=== PATIENT | male | born 1980 | race Caucasian/White ===

== ENCOUNTER 2017-10-11 07:28 | Day surgery (SDC) | payer OTHER ==
--- NOTE | 2017-10-09 13:03 | HISTORY AND PHYSICAL E ---
History and Physical NAME: KIMBERLY KRISHNAN : 1980 AGE: 37Y ADMITTED: 10/11/2017 ROOM: HISTORY OF PRESENT ILLNESS: The patient presents with abdominal pain, 37. He has reflux, vomiting, abdominal pain, bloating. SOCIAL HISTORY: Does not smoke. Drinks rarely. FAMILY HISTORY: Patient adopted. PAST SURGICAL HISTORY: Vasectomy. Hydrocele. Did have upper endoscopy, 2014, regarding GERD and vomiting. MEDICATIONS: 1. Celebrex. 2. Zantac. 3. Protonix. 4. Vitamins. REVIEW OF SYSTEMS: HEAD, EYES, EARS, NOSE, THROAT: Negative. RESPIRATORY: Negative. CARDIAC: Negative. GASTROINTESTINAL: Reflux, abdominal pain. ONCOLOGY/HEMATOLOGY: Negative. NEUROLOGIC: L5-S1. PHYSICAL EXAMINATION: VITAL SIGNS: Age 37, weight 200, blood pressure 130/70, pulse is 60, respirations 18, temp is 98. HEAD, EYES, EARS, NOSE, THROAT: Normal. NECK: Supple. CARDIOVASCULAR: Normal. LUNGS: Clear. ABDOMEN: Soft. NEUROLOGIC: Negative. PLAN: Upper scope, 10/11. DICTATING PHYSICIAN: VIDA BELTRAN M.D. [id number] PHY#: [id number] ID: [id number] JOB#: [id number] ACCT: [id number] cc:[facility] VIDA KAN M.D. >
[2017-10-11] MEDS ORDERED: NALOXONE HCL INJ/PF 0.4 MG/1 ML SDV ONE (07:38)
[2017-10-11] MEDS ORDERED: GLYCOPYRROLATE INJ 0.4 MG/2 ML VIAL ONE (07:38)
[2017-10-11] MEDS ORDERED: ONDANSETRON HCL INJ/PF 4 MG/2 ML SDV ONE (07:38)
[2017-10-11] MEDS ORDERED: FLUMAZENIL INJ 0.5 MG/5 ML VIAL ONE (07:39)
[2017-10-11] MEDS ORDERED: EPINEPHRINE INJ 1 MG/10 ML DISP.SYRIN ONE (07:39)
[2017-10-11] MEDS: MIDAZOLAM 2 MG/2 ML INJ ONE ×4 (08:04→08:12)
[2017-10-11] MEDS: FENTANYL CITRATE INJ/PF 100 MCG/2 ML AMPUL ONE ×2 (08:06→08:14)
[2017-10-11 09:33] VITALS: BP 108/65
[2017-10-11 09:38] LABS: ABSOLUTE BASOPHILS # (AUTO) 0.1 10^3/uL (0.0-0.2); ABSOLUTE EOSINOPHILS # (AUTO) 0.3 10^3/uL (0.0-0.6); ABSOLUTE LYMPHOCYTES (AUTO) 1.8 10^3/uL (0.5-4.7); ABSOLUTE MONOCYTES (AUTO) 0.3 10^3/uL (0.1-1.4); ABSOLUTE NEUT (AUTO) 2.7 10^3/uL (1.7-8.2); BASOPHILS % (AUTO) 2.4 % (0-2); EOSINOPHILS % (AUTO) 5.4 % (0-6); HEMATOCRIT 43.4 % (37.9-51.0); HEMOGLOBIN 15.1 g/dL (13.5-17.0); HGB HCT DIFFERENCE 1.9; LYMPHOCYTES % (AUTO) 35.4 % (13-45); MEAN CORPUSCULAR HEMOGLOBIN 31.3 pg (27.0-33.4); MEAN CORPUSCULAR HGB CONC 34.8 g/dL (32.0-36.0); MEAN CORPUSCULAR VOLUME 90 fl (80-97); MONOCYTES % (AUTO) 5.9 % (3-13); RED BLOOD COUNT 4.83 10^6/uL (4.35-5.55); RED CELL DISTRIBUTION WIDTH 13.2 % (11.5-14.0); SEGMENTED NEUTROPHILS % (AUTO) 50.9 % (42-78); WHITE BLOOD COUNT 5.2 10^3/uL (4.0-10.5)
[2017-10-11 09:54] LABS: ALANINE AMINOTRANSFERASE 53 U/L (21-72); ALBUMIN 4.6 g/dL (3.5-5.0); ALKALINE PHOSPHATASE 55 U/L (38-126); ANION GAP 12 (5-19); ASPARTATE AMINO TRANSFERASE 25 U/L (17-59); BILIRUBIN,DIRECT 0.2 mg/dL (0.0-0.4); BILIRUBIN,TOTAL 0.5 mg/dL (0.2-1.3); BLOOD UREA NITROGEN 14 mg/dL (7-20); CALCIUM 9.9 mg/dL (8.4-10.2); CARBON DIOXIDE 26 mmol/L (22-30); CHLORIDE 103 mmol/L (98-107); CREATININE RESULT 0.88 mg/dL (0.52-1.25); GLUCOSE 140 mg/dL (75-110); LIPASE 69.1 U/L (23-300); POTASSIUM 4.2 mmol/L (3.6-5.0); SODIUM 140.8 mmol/L (137-145); TOTAL PROTEIN 6.8 g/dL (6.3-8.2)
[2017-10-11 09:57] LABS: AMYLASE < 30 U/L (30-110)
--- NOTE | 2017-10-11 13:05 | OPERATIVE REPORT E ---
Operative Report NAME: KIMBERLY KRISHNAN : 1980 AGE: 37Y DATE OF SURGERY: 10/11/2017 ROOM: PREOPERATIVE DIAGNOSES: 1. Reflux. 2. Abdominal pain. POSTOPERATIVE DIAGNOSES: 1. Esophagitis, mild. 2. Gastritis, mild. 3. Duodenitis, mild. SURGEON: VIDA BELTRAN M.D. ANESTHESIA: Versed, fentanyl combination. Patient has strong gag. Given Versed 6 and fentanyl 150. For future endoscopy, consider propofol with anesthesia standby. DESCRIPTION OF PROCEDURE: Esophagoscopy junction at 40. Mild esophagitis. No stricture. No definite hernia. Mild esophagitis. Gastroscopy: Mild gastritis. Duodenoscopy: No ulcers with mild duodenitis. CONCLUSION: 1. Esophagitis. 2. Gastritis. 3. Duodenitis with no ulcers. Gastric biopsy obtained. Patient tolerated procedure well. PLAN: Continue Protonix. Hold aspirin, nonsteroidal. Soft diet. Patient to see us in the office in the next few days. DICTATING PHYSICIAN: VIDA BELTRAN M.D. [id number] [facility]#: [id number] ID: [id number] JOB#: [id number] ACCT: [id number] cc:[facility] VIDA BELTRAN M.D. >
--- NOTE | 2017-10-11 13:16 | DISCHARGE SUMMARY E ---
Discharge Summary NAME: KIMBERLY KRISHNAN : 1980 AGE: 37Y ADMITTED: 10/11/2017 DISCHARGED: 10/11/2017 The patient is 37, with exacerbation of . Scope today shows mild esophagitis, no hernia, mild gastritis. DISCHARGE PLAN: Continue Protonix, soft diet. Lab studies. Followup office visit in the next few days. DICTATING PHYSICIAN: VIDA BELTRAN M.D. [id number] Y#: [id number] ID: [id number] JOB#: [id number] ACCT: [id number] cc:[facility] VIDA BELTRAN M.D. >
== END 2017-10-11 09:34 | disposition home or self-care (01) ==
LOC: END 07:28
PROVIDERS: ATTEND Specialist
PROC: 0DB68ZX Excision of Stomach, Via Natural or Artificial Opening Endoscopic, Diagnostic (ICD-10-PCS; principal; 2017-10-11 08:00)
DX: K21.0 Gastro-esophageal reflux disease with esophagitis (principal); K29.50 Unspecified chronic gastritis without bleeding; K29.80 Duodenitis without bleeding; Z79.899 Other long term (current) drug therapy; Z79.1 Long term (current) use of non-steroidal anti-inflammatories (NSAID)
CPT/HCPCS: 43239; 36415; 82150; 83690; 85025; 80053; 88342 ×2; 88305 ×2; J2250; J3010; J2405; J0171; J2310; J3490

== ENCOUNTER → 2019-03-11 | Day surgery (SDC) | payer OTHER ==
[~2019-03-11] MED LIST: BUPIVACAINE HCL 0.5 % INJ/PF 30 ML SDV ONE; LIDOCAINE 1% INJ-PF (10 MG/ML) 30 ML SDV ONE; LIDOCAINE 2% INJ (20 MG/ML) 20 ML MDV ONE; METHYLPREDNISOLONE ACETATE INJ 40 MG/1 ML ML ONE
--- NOTE | 2019-03-11 10:28 | Operative Report ---
PREOPERATIVE DIAGNOSIS: Lumbar Spondylosis without myelopathy POSTOPERATIVE DIAGNOSIS: Lumbar Spondylosis without myelopathy PROCEDURE: Radiofrequency Ablation of medial branches - RT L3, L4 . LT L3, L4. DATE OF PROCEDURE: March 11, 2019 ANESTHESIA: Local COMPLICATIONS: None CONSENT: A full description of the procedure was provided including benefits as well as possible complications. All questions were answered and informed consent was given and signed. ASA guidelines for fasting were verified prior to sedation. PROCEDURE IN DETAIL The patient was brought into the fluoroscopy suite and positioned into the prone position on the fluoroscopy table and allowed to adjust to a position of comfort. A grounding pad was placed on the right thigh. The lumbar region was widely prepped with a chloraprep solution, allowed to air dry and draped in standard sterile surgical fashion. Local anesthesia was provided by 1 mL of 1 % lidocaine delivered with a 25 g needle. A 17g 75 mm radiofrequency introducer needle was placed to the planned anatomic targets guided with intermittent fluoroscopy with a perpendicular approach to terminally place at the junction of the superior articular process and the transverse process of the right L3 and L4. The stylets were removed and radiofrequency probes with a 4mm active tip were then inserted. Needle tip position of the probes was verified in the AP, oblique, and lateral views. At each site, the medial branch nerve was stimulated at 2 Hz to a maximum 1-2 volts determined to finalize safe needle and electrode placement. The patient was aw shelby and responsive during this portion of the procedure. Each target was anesthetized with 1-2 mL of 2 % lidocaine for anesthesia for lesioning and then each target was lesioned at 80 degrees Celsius for 2 minutes and 30 seconds. Tissue impedences were noted to be between 250 and 500 Ohms. Electrodes were removed and each site was infiltrated with 1mL of a mixture of 0.25% bupivacaine and 40mg depomedrol. Then needles were removed. Attention was turned to the opposite side where the procedure was performed in identical fashion. Following the procedure, needles were removed and bandages placed over the needle placement sites, the patient then returned to the supine position on a stretcher and transported to the recovery room without hemodynamic, neurologic, or allergic reactions. Fluoroscopic images were printed for hard copy recording and digitally archived. POST PROCEDURE EVALUATION: The patient was comfortable in the recovery room. The patient is aware that pain may worsen before remitting and 4 - 6 weeks may be required prior to the onset of pain relief. IMPRESSION: 1. Technically successful bilateral L3 L4 medial branch radiofrequency neurotomy without complication. 2. RTC in 3 weeks. 3. Estimated Blood Loss: Minimal
== END ==
LOC: RAD 08:59
PROVIDERS: ATTEND Pain Medicine Interventional Pain Medicine
DX: M47.816 Spondylosis without myelopathy or radiculopathy, lumbar region (principal)
CPT/HCPCS: 64635; 64636; J3490 ×2; J1030